=== PATIENT | male | born 1975 | race Caucasian/White ===

== ENCOUNTER 2017-08-25 17:33 | Emergency (ER) | payer MEDICARE, OTHER ==
[2017-08-25] MEDS: HEPARIN SODIUM,PORCINE 30 UNITS INJ IV ONE ×2 (17:45)
[2017-08-25 18:13] VITALS: BP 120/68
[2017-08-25] MEDS: HEPARIN SODIUM 500 UNIT/5 ML DISP.SYRIN IV ONE (18:17)
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
== END 2017-08-25 17:50 | disposition home or self-care (01) ==
LOC: ED 17:33
DX: Z45.2 Encounter for adjustment and management of vascular access device (principal)
CPT/HCPCS: 96374; 99283

== ENCOUNTER 2017-09-18 17:43 | Emergency (ER) | payer MEDICARE, OTHER ==
[2017-09-18] MEDS ORDERED: ALTEPLASE 50 MG VIAL IV ONE (17:49)
[2017-09-18 17:56] VITALS: BP 122/78
[2017-09-18] MEDS ORDERED: WATER FOR INJECTION,STERILE 50 ML VIAL IJ ONE (18:10)
--- NOTE | 2017-09-18 18:21 | ED Physician Documentation ---
General Adult - HISTORIAN Historian: patient - HPI Stated Complaint: PICC clogged Chief Complaint: General Adult Further Comments: yes (42 year old male patient presents with complaint of PICC line occluded. Patient was seen last week for similar complaints. Is recieving correction antibiotics.) - ROS CONST: no problems EYES/ENT: none CVS/RESP: none GI/: none MS/SKIN/LYMPH: none NEURO/PSYCH: denies: headache - PAST HX Past History: other (Quad, seizures, depression) Allergies/Adverse Reactions: Allergies Allergy/AdvReac Type Severity Reaction Status Date / Time Sulfa (Sulfonamide Allergy Intermediate Rash Verified 09/18/17 17:51 Antibiotics) [Sulfa(Sulfonamide Antibiotics)] Home Medications: Ambulatory Orders Medication Instructions Recorded Ascorbic Acid [Vitamin C] 1 tab PO DAILY 06/05/15 Calcium Carbonate [Calcium] 1 tab PO BID 06/05/15 Citalopram Hydrobromide [Celexa] 1 tab PO DAILY 06/05/15 Midodrine HCl [Midodrine HCl] 1 tab PO BID 06/05/15 Levetiracetam [Levetiracetam ER] 1 tab PO BID 10/23/15 - SOCIAL HX Smoking History: non-smoker - FAMILY HX Family History: No - VITAL SIGNS Vital Signs: Vital Signs Temp Pulse Resp BP Pulse Ox 99.1 F 68 19 122/78 93 09/18/17 17:51 09/18/17 17:51 09/18/17 17:51 09/18/17 17:51 09/18/17 17:51 - REVIEWED ASSESSMENTS Nursing Assessment Reviewed: Yes Vitals Reviewed: Yes Progress - Progress Progress: Power PICC to left arm red port extremely difficult to flush purple port occluded. 1814 Both ports loaded with Activase 184 Both port with good blood return and flushing easily initially. Recapped purple port, became very difficult to flush. No more Activase available. Contact Pharmacy, will have additional doses back in Saturday. Will contact patient for additional declotting. ED Results Lab/Radiology - Orders Orders: ED Orders Category Date Time Status Alteplase [Activase] Med 09/18/17 17:49 Discontinued 50 mg IV .STK-MED ONE Water For Injection,Sterile [Sterile Water] Med 09/18/17 18:10 Discontinued 4.4 ml IJ NOW ONE General Adult Physical Exam - PHYSICAL EXAM GENERAL APPEARANCE: [id number] N EENT: eye inspection normal, JYOTI RESPIRATORY: no resp distress CVS: reg rate & rhythm ABDOMEN: soft SKIN: other (quad - wheelchair bound; ) EXTREMITIES: other (purple power PICC to left arm) NEURO: oriented X3, mood/affect nml, cognition normal Discharge Clincal Impression: Occluded PICC line Qualifiers: Encounter type: initial encounter Qualified Code(s): T82.898A - Other specified complication of vascular prosthetic devices, implants and grafts, initial encounter Referrals: Aguilar Antunez MD [Primary Care Provider] - 2 Days Additional Instructions: Your PICC line was de-clotted Red port is open - flushing with good blood return Purple port - good blood return, difficult to flush. Do not use Heparin on purple PICC - contraindicated. We will call you to schedule another de-clotting as soon as our Activase is restocked. Condition: Stable Disposition: 01 HOME, SELF-CARE Decision to Admit: NO Decision Time: 18:56
== END 2017-09-18 18:55 | disposition home or self-care (01) ==
LOC: ED 17:43
DX: T82.898A Other specified complication of vascular prosthetic devices, implants and grafts, initial encounter (principal); X58.XXXA Exposure to other specified factors, initial encounter; Y93.9 Activity, unspecified; Y99.9 Unspecified external cause status
CPT/HCPCS: 99283

== ENCOUNTER 2018-06-21 18:46 | Emergency (ER) | payer MEDICARE, OTHER ==
[2018-06-21] MEDS ORDERED: 0.9 % SODIUM CHLORIDE 1,000 ML IV ONE (19:02)
[2018-06-21] MEDS ORDERED: NORMAL SALINE 500 ML IV.SOLN IV STA (19:07)
--- NOTE | 2018-06-21 19:38 | Diagnostic Imaging Report ---
ASHLY HKAN [facility] [address] [facility] [address] [place], [place]. [address] Report Submission Date: Jun 21, 2018 7:34:42 PM CDT Patient Study Name: SCHUYLER ESPINO Date: Jun 21, 2018 7:11:25 PM CDT Modality Type: CT\SR Gender: M Description: CT BRAIN W/O CONTRAST : 71 Institution: [facility] Physician: ASHLY KHAN Head CT without contrast History: Altered mental status Technique: Axial images were obtained from the skullbase to the vertex without IV contrast. Findings: At the medial left temporal lobe, there is an acute hemorrhage measuring approximately 1.5 x 1.7 cm in greatest dimension. This parenchymal hemorrhage has ruptured into the adjacent left temporal horn. The etiology of this acute hemorrhage is uncertain. The remainder the brain demonstrates normal parenchymal attenuation. The ventricular system is normal in size and configuration. There is no positive mass effect or intra/extra-axial hemorrhage. Visualized paranasal sinuses and mastoid air cells are clear and the calvarium is intact. Impression: Acute parenchymal hemorrhage involving the medial left temporal lobe which has ruptured into the adjacent left temporal horn as further detailed in the body of the report. These findings were called to Ashly Khan NP in the emergency room on June 21, 2018 at 7:30 p.m.. Electronically signed on Jun 21, 2018 7:34:42 PM CDT by: Danielle ROSENBAUM
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
[2018-06-21 19:46] LABS: eGFR (African) > 60; eGFR (Non-African) > 60
[2018-06-21] MEDS ORDERED: PHARMACY KEY 1 EACH EACH MC ONE (19:50)
[2018-06-21 19:53] LABS: MEAN CORPUSCULAR HEMOGLOBIN 26.9 pg (28.0-34.0); MEAN CORPUSCULAR VOLUME 81.6 fl (80.0-100.0)
[2018-06-21 19:54] LABS: BASOPHILS % 0.5 (0.0-1.5); EOSINOPHILS % 3.2 % (0.0-6.8); MONOCYTES % 3.3 % (0.0-11.0)
[2018-06-21 19:58] VITALS: BP 104/74
[2018-06-22 06:17] LABS: NEUTROPHILS # 5.6 # k/uL (1.4-7.7)
[2018-06-22 07:00] LABS: APPEARANCE,URINE CLOUDY (CLEAR); COLOR,URINE YELLOW (YELLOW); OCCULT BLOOD,URINE 2+ (NEGATIVE); PH URINE >=9.0 (5.0 - 8.0); UROBILINOGEN URINE 0.2 Eu (0.2-1.0)
[2018-06-22 07:02] LABS: CANNABINOIDS NEGATIVE ng/mL (< 50)
[2018-06-22 07:03] LABS: METHYLENEDIOXYMETHAMPHETAMINE NEGATIVE ng/mL (<500)
== END 2018-06-21 19:55 | disposition short-term general hospital (02) ==
LOC: ED 18:46
DX: I61.9 Nontraumatic intracerebral hemorrhage, unspecified (principal)
CPT/HCPCS: 70450; 80053; 81002; 84484; 85025; 85610; 85730; G0480; G0481; J7030; 80320; 80377; 99285; S1016

== ENCOUNTER 2019-03-02 02:54 | Emergency (ER) | payer MEDICARE, OTHER ==
[2019-03-02] MEDS ORDERED: ACETAMINOPHEN 325 MG TABLET PO ONE (03:16)
[2019-03-02] MEDS ORDERED: 0.9 % SODIUM CHLORIDE 1,000 ML IV SCH (03:30)
[2019-03-02] MEDS ORDERED: 0.9 % SODIUM CHLORIDE 1,000 ML IV ONE (03:35)
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
[2019-03-02 04:27] VITALS: BP 112/59
[2019-03-02] MEDS ORDERED: CIPROFLOXACIN HCL 500 MG TABLET PO ONE (04:54)
[2019-03-02 05:50] LABS: MEAN CORPUSCULAR HEMOGLOBIN 29.3 pg (28.0-34.0)
--- NOTE | 2019-03-02 05:50 | Diagnostic Imaging Report ---
ALICIA GRAVES ED [facility] [address] [facility] [address] [place], [place]. [address] Report Submission Date: March 02, 2019 4:24:05 AM CDT Patient Study Name: SCHUYLER ESPINO Date: March 02, 2019 3:53:14 AM CDT Modality Type: DX Gender: M Description: ABDOMEN 1VIEW : 71 Institution: [facility] Physician: ALICIA GRAVES ED 1 view of the abdomen History: Fever and constipation No comparison studies Battery pack is seen in the left lower abdomen. Stool seen throughout the colon. Mildly distended bowel loops are seen predominantly in the right lower abdomen. A 2.6 cm rounded calcification is seen in the pelvis. Patient is rotated. Heterotopic calcification is seen at both hips and near the right ischial tuberosity. Mild deformity of the right obturator foramen. Tubing seen at the right groin. Impression: 1. Large amount of stool throughout the colon. Mildly distended small bowel loops in the right lower abdomen are incompletely evaluated on this single view, may be related to an ileus versus questionable partial bowel obstruction. Followup is suggested. 2. The patient is rotated. Heterotopic ossification at bilateral hips. Deformity and ossification is noted at the right ischial tuberosity of uncertain etiology and chronicity. Electronically signed on March 02, 2019 4:24:05 AM CDT by: Anila ROSENBAUM
--- NOTE | 2019-03-02 05:50 | Diagnostic Imaging Report ---
ALICIA GRAVES ED [facility] [address] [facility] [address] [place], [place]. [address] Report Submission Date: March 02, 2019 4:10:54 AM CDT Patient Study Name: SCHUYLER ESPINO Date: March 02, 2019 3:47:21 AM CDT Modality Type: DX Gender: M Description: CHEST 1VIEW : 71 Institution: [facility] Physician: ALICIA GRAVES ED The 1 view of the chest History: Fever Comparison: None available Heart size is upper limits of normal. Hyperexpansion of the lungs. Mild central pulmonary vascular congestion. Minimal right apical pleural thickening. No focal consolidation, pleural effusion or pneumothorax. Degenerative changes of the thoracic spine and shoulders, cervical fusion hardware is incompletely imaged. Impression: Hyperexpansion. Mild cardiomegaly and hilar pulmonary vascular congestion. Minimal basilar atelectasis. No focal consolidation or pleural effusion. Electronically signed on March 02, 2019 4:10:54 AM CDT by: Anila ROSENBAUM
[2019-03-02 05:51] LABS: BASOPHILS % 0.5 % (0.0-1.5); EOSINOPHILS % 1.3 % (0.0-6.8); MONOCYTES % 4.1 % (0.0-11.0); NEUTROPHILS # 10.4 # k/uL (1.4-7.7)
[2019-03-02 05:52] LABS: eGFR (Non-African) > 60
[2019-03-02 06:39] LABS: APPEARANCE,URINE TURBID (CLEAR); COLOR,URINE ORANGE (YELLOW); OCCULT BLOOD,URINE 3+ (NEGATIVE)
== END 2019-03-02 05:06 | disposition home or self-care (01) ==
LOC: ED 02:54
DX: N39.0 Urinary tract infection, site not specified (principal); T83.511A Infection and inflammatory reaction due to indwelling urethral catheter, initial encounter; K59.00 Constipation, unspecified
CPT/HCPCS: 36415; 71045; 74018; 80053; 81002; 83605; 85025; 87040; 87086; 99283; 99284; J7030; S1016